=== PATIENT | male | born 1940 | race Native Hawaiian/Other Pacific Islander ===

== ENCOUNTER 2018-04-28 15:37 | Emergency (ER) | payer MEDICARE ==
--- NOTE | 2018-04-28 15:46 | Emergency Department Report ---
Chief Complaint: Upper Respiratory Infection Stated Complaint: COUGHING Time Seen by Provider: 04/28/18 15:45 - HPI History of Present Illness: 24 HOUR HX OF COUGH AMBULATORY HAITIAN SPEAKING wheezing in triage To Ed for treatment. MSE completed MSE screening note: Focused history and physical exam performed. Due to findings the following was ordered: ED Medical Decision Making - Lab Data Result diagrams: 04/28/18 15:57 04/28/18 15:57 ED Disposition for MSE Condition: Stable
[2018-04-28] MEDS ORDERED: PROVENTIL IH ONE (15:47)
[2018-04-28] MEDS ORDERED: DELTASONE PO ONE ×2 (15:48→16:19)
[2018-04-28] MEDS ORDERED: TESSALON PERLES PO ONE (16:19)
[2018-04-28 16:20] LABS: Hematocrit 39.8 % (35.5-45.6); Hemoglobin 13.2 gm/dl (11.8-15.2); Mean Corpuscular HGB Conc 33 % (32-34); Mean Corpuscular Volume 83 fl (84-94); Platelet Count 195 K/mm3 (140-440); Red Blood Count 4.78 M/mm3 (3.65-5.03); Red Cell Distribution Width 13.9 % (13.2-15.2)
--- NOTE | 2018-04-28 16:35 | Emergency Department Report ---
HPI - General Chief Complaint: Upper Respiratory Infection Time Seen by Provider: 04/28/18 15:45 - HPI HPI: 77-year-old male presents to the emergency Department with a 24-hour of a mixed dry and productive cough he also complains of some wheezing. He denies any chest pain, fever, back pain, nausea, vomiting or diaphoresis. He denies any past medical history. He denies any tobacco or illicit drug use or abuse. He has not taken anything for her symptoms prior to presentation. No recent travel or sick contacts at home. ED Past Medical Hx - Past Medical History Previous Medical History?: No - Surgical History Past Surgical History?: Yes Additional Surgical History: testicle surgery - Social History Smoking Status: Never Smoker Substance Use Type: None - Medications Home Medications: Home Medications Medication Instructions Recorded Confirmed Last Taken Type Acetaminophen/Codeine [Tylenol #3] 1 tab PO Q6H PRN #20 tab 06/20/15 Unknown Rx Cyclobenzaprine [Flexeril] 10 mg PO TID PRN #15 tablet 06/20/15 Unknown Rx Ibuprofen [Motrin] 600 mg PO Q8H PRN #40 tablet 06/20/15 Unknown Rx ALBUTEROL Inhaler (OR & NICU) 2 puff IH QID PRN #1 inhalation 04/28/18 Unknown Rx [ProAir HFA Inhaler] Azithromycin [Zithromax Z-JAVIER] 250 mg PO DAILY #6 tab 04/28/18 Unknown Rx Prednisone [predniSONE 5 mg (6-Day 5 mg PO .TAPER #1 tab.ds.pk 04/28/18 Unknown Rx Pack, 21 Tabs)] guaiFENesin/CODEINE [Robitussin AC] 5 ml PO Q6H PRN #100 ml 04/28/18 Unknown Rx ED Review of Systems ROS: Stated complaint: COUGHING Other details as noted in HPI Comment: All other systems reviewed and negative Constitutional: denies: chills, fever Eyes: denies: eye pain, eye discharge ENT: denies: ear pain, throat pain Respiratory: cough, wheezing Cardiovascular: denies: chest pain, edema Gastrointestinal: denies: abdominal pain, vomiting Genitourinary: denies: dysuria, discharge Musculoskeletal: denies: back pain, arthralgia Skin: denies: rash, lesions Neurological: denies: headache, weakness Physical Exam - Physical Exam Vital Signs: Vital Signs 04/28/18 15:47 Temperature 98.9 F Pulse Rate 95 H Respiratory 14 Rate Blood Pressure 161/80 [Right] O2 Sat by Pulse 98 Oximetry Physical Exam: GENERAL: The patient is well-developed well-nourished. HEENT: Normocephalic. Atraumatic. Patient has moist mucous membranes. EYES: Extraocular motions are intact. Pupils are equal and reactive to light bilaterally. NECK: Supple. Trachea is midline. CHEST/LUNGS: Clear to auscultation. Patient has a bronchospastic cough that occurs with coughing fits. There is no respiratory distress noted. HEART/CARDIOVASCULAR: Regular. There is no tachycardia. There is no obvious murmur. ABDOMEN: Abdomen is soft, nontender. Patient has normal bowel sounds. There is no abdominal distention. SKIN: Skin is warm and dry. NEURO: The patient is awake, alert, and oriented. The patient is cooperative. The patient has no focal neurologic deficits. The patient has normal speech. MUSCULOSKELETAL: There is no tenderness or deformity. There is no evidence of acute injury. ED Course Vital Signs 04/28/18 15:47 Temperature 98.9 F Pulse Rate 95 H Respiratory 14 Rate Blood Pressure 161/80 [Right] O2 Sat by Pulse 98 Oximetry ED Medical Decision Making - Lab Data Result diagrams: 04/28/18 15:57 04/28/18 15:57 - Radiology Data Radiology results: image reviewed interpreted by me: Chest x-ray does not show any pneumothorax, pleural effusion, pneumonia or obvious focal consolidation. - Medical Decision Making Patient presents with a 24-hour history of a cough. On examination lungs sound clear patient has a bronchospastic cough that occurs with coughing fits. Chest x-ray did not show any pleural effusions, pneumonia, focal consolidation, pneumothorax, or any other acute process. Labs were unremarkable including a CBC and BMP. He was given some Tessalon Perles for cough, steroids and a breathing treatment. Upon reevaluation he is feeling improved. Vital signs stable throughout his ED course. Patient be discharged home with some antibiotics, albuterol inhaler, steroids and Robitussin-AC for cough. He is instructed to follow-up with his primary care physician and return to the ER with any worsening of his symptoms or any acute distress. - Differential Diagnosis asthma, bronchitis, URI, pneumonia Critical Care Time: No Critical care attestation.: If time is entered above; I have spent that time in minutes in the direct care of this critically ill patient, excluding procedure time. ED Disposition Clinical Impression: Viral URI, Bronchitis, Elevated blood pressure reading Disposition: DC-01 TO HOME OR SELFCARE Is pt being admited?: No Condition: Stable Instructions: Upper Respiratory Infection (ED), Acute Bronchitis (ED) Additional Instructions: Please follow-up with your primary care physician. Return to the emergency Department with any worsening of your symptoms or any acute distress. You have been prescribed a medication that can be sedating. Therefore, this medication cannot be taken prior to driving, working, being responsible for children, and cannot be mixed with alcohol of any quantity. Prescriptions: ALBUTEROL Inhaler (OR & NICU) [ProAir HFA Inhaler] 2 puff IH QID PRN #1 inhalation PRN Reason: Shortness Of Breath Azithromycin [Zithromax Z-JAVIER] 250 mg PO DAILY #6 tab guaiFENesin/CODEINE [Robitussin AC] 5 ml PO Q6H PRN #100 ml PRN Reason: Cough Prednisone [predniSONE 5 mg (6-Day Pack, 21 Tabs)] 5 mg PO .TAPER #1 tab.ds.pk Referrals: PRIMARY CARE, [Primary Care Provider] - 2-3 Days Forms: Work/School Release Form(ED) Time of Disposition: 18:28 Print Language: LUXEMBOURGISH
[2018-04-28 16:39] LABS: BUN/Creatinine Ratio 12; Blood Urea Nitrogen 13 mg/dL (9-20); Calcium 8.3 mg/dL (8.4-10.2); Hemolysis Index 8
[2018-04-28 18:29] VITALS: BP 135/62
--- NOTE | 2018-04-28 18:54 | XRay Report ---
FINAL REPORT PROCEDURE: Chest. TECHNIQUE: PA and lateral views. HISTORY: Cough. COMPARISON: No prior studies are available for comparison. FINDINGS: The heart size is normal. There is calcification in the aortic arch. The lungs are clear and well exp anded. There are no pleural effusions. The soft tissues and regional skeleton are unremarkable. IMPRESSION: No evidence of acute disease.
== END 2018-04-28 18:51 | disposition home or self-care (01) ==
LOC: ED 15:37
DX: J06.9 Acute upper respiratory infection, unspecified (principal); J40 Bronchitis, not specified as acute or chronic; I10 Essential (primary) hypertension
CPT/HCPCS: 36415; 71046; 80048; 85027; 94640; 99284; J7512

== ENCOUNTER 2020-12-23 18:42 | Emergency (ER) | payer MEDICARE ==
[2020-12-23 18:50] VITALS: BP 146/70
--- NOTE | 2020-12-23 19:28 | Emergency Department Report ---
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 Patient states that he was barefoot and hit his foot against the corner of the couch. He states initially there was bleeding but has since improved. He is complaining of pain. He states his last tetanus immunization was 1 year ago. He denies any other injury. he denies any numbness or weakness. no allergies to medications. No past medical history. - Related Data Previous Rx's Medication Instructions Recorded Last Taken Type Acetaminophen/Codeine [Tylenol #3] 1 tab PO Q6H PRN #20 tab 06/20/15 Unknown Rx Cyclobenzaprine [Flexeril] 10 mg PO TID PRN #15 tablet 06/20/15 Unknown Rx Ibuprofen [Motrin] 600 mg PO Q8H PRN #40 tablet 06/20/15 Unknown Rx Albuterol Mdi (or & Nicu Only) 2 puff IH QID PRN #1 inhalation 04/28/18 Unknown Rx [ProAir HFA Inhaler] Azithromycin [Zithromax Z-JAVIER] 250 mg PO DAILY #6 tab 04/28/18 Unknown Rx Prednisone [predniSONE 5 mg (6-Day 5 mg PO .TAPER #1 tab.ds.pk 04/28/18 Unknown Rx Pack, 21 Tabs)] guaiFENesin/CODEINE [Robitussin AC] 5 ml PO Q6H PRN #100 ml 04/28/18 Unknown Rx Acetaminophen [Tylenol] 650 mg PO Q8HR PRN #20 capsule 12/23/20 Unknown Rx Mupirocin [Bactroban 2% OINT] 1 applic TP TID #1 tube 12/23/20 Unknown Rx cephALEXin [Keflex] 500 mg PO QID 7 Days #28 cap 12/23/20 Unknown Rx Allergies Allergy/AdvReac Type Severity Reaction Status Date / Time No Known Allergies Allergy Verified 03/21/15 11:42 ED Review of Systems ROS: Stated complaint: FALL/LT FOOT TOE INJURY Other details as noted in HPI Comment: All other systems reviewed and negative ED Past Medical Hx - Past Medical History Previous Medical History?: No - Surgical History Additional Surgical History: testicle surgery SHOULDER - Social History Smoking Status: Never Smoker Substance Use Type: None - Medications Home Medications: Home Medications Medication Instructions Recorded Confirmed Last Taken Type Acetaminophen/Codeine [Tylenol #3] 1 tab PO Q6H PRN #20 tab 06/20/15 Unknown Rx Cyclobenzaprine [Flexeril] 10 mg PO TID PRN #15 tablet 06/20/15 Unknown Rx Ibuprofen [Motrin] 600 mg PO Q8H PRN #40 tablet 06/20/15 Unknown Rx Albuterol Mdi (or & Nicu Only) 2 puff IH QID PRN #1 inhalation 04/28/18 Unknown Rx [ProAir HFA Inhaler] Azithromycin [Zithromax Z-JAVIER] 250 mg PO DAILY #6 tab 04/28/18 Unknown Rx Prednisone [predniSONE 5 mg (6-Day 5 mg PO .TAPER #1 tab.ds.pk 04/28/18 Unknown Rx Pack, 21 Tabs)] guaiFENesin/CODEINE [Robitussin AC] 5 ml PO Q6H PRN #100 ml 04/28/18 Unknown Rx Acetaminophen [Tylenol] 650 mg PO Q8HR PRN #20 capsule 12/23/20 Unknown Rx Mupirocin [Bactroban 2% OINT] 1 applic TP TID #1 tube 12/23/20 Unknown Rx cephALEXin [Keflex] 500 mg PO QID 7 Days #28 cap 12/23/20 Unknown Rx ED Physical Exam - General Limitations: Language Barrier General appearance: alert, in no apparent distress - Head Head exam: Present: atraumatic, normocephalic - Eye Eye exam: Present: normal appearance - ENT ENT exam: Present: mucous membranes moist - Extremities Exam Extremities exam: Present: other (ttp to the distal left 3rd toe, nail avulsion of the third toe, small amount dried blood, no obvious laceration, FROM of the LLE, neurovascularly intact) - Neurological Exam Neurological exam: Present: alert, oriented X3 - Psychiatric Psychiatric exam: Present: normal affect, normal mood - Skin Skin exam: Present: warm, dry ED Course Vital Signs 12/23/20 12/23/20 18:49 21:17 Temperature 98.0 F Pulse Rate 85 81 Respiratory 18 17 Rate Blood Pressure 146/70 O2 Sat by Pulse 98 99 Oximetry - Procedure Description Procedures done: nail removal. verbal consent obtained by patient using federal aid coordinator. prepped with betadine, sterile drapes applied, 3 cc of 1% lidocaine without epi used for digital block of the left third toe, hemostats used to remove nail without complication, non adherent dressing applied, bleeding c ontrolled, pt tolerated well, no complication ED Lower Extremity MDM - Radiology Data Radiology results: report reviewed Ordering Physician: RACHEL BURCH Date of Service: 12/23/20 Procedure(s): XR foot 3+V LT Accession Number(s): [id number] cc: RACHEL BURCH Fluoro Time In Minutes: LEFT FOOT 3 VIEWS INDICATION: hit left 4th toe against corner of couch. COMPARISON: None. IMPRESSION: On 1 view only there is suggestion of a very subtle nondisplaced fracture near the base of the fourth toe. The remaining bony structures are intact. Plantar spur is noted. No significant joint pathology. Signer Name: Avelino Ramos Jr, MD Signed: 12/23/2020 7:40 PM Workstation Name: [id number] Transcribed By: TTR Dictated By: AVELINO RAMOS JR, MD Electronically Authenticated By: AVELINO RAMOS JR, MD Signed Date/Time: 12/23/201939 DD/ 37 TD/TT: - Medical Decision Making Hungarian interpretation by patient's family member with patient's permission Patient is a 79-year-old male who presents emergency room after a left third toe injury that occurred just prior to arrival. Patient states that he was bare foot and hit his foot against the corner of the couch. He states initially there was bleeding but has since improved. He is complaining of pain. He states his last tetanus immunization was 1 year ago. He denies any other injury. he denies any numbness or weakness. no allergies to medications. No past medical history. Vitals are stable. On exam:ttp to the distal left 3rd toe, nail avulsion of the third toe, small amount dried blood, no obvious laceration, FROM of the LLE, neurovascularly intact. X-ray left foot: On 1 view only there is suggestion of a very subtle nondisplaced fracture near the base of the fourth toe. The remaining bony structures are intact. Plantar spur is noted. No significant joint pathology. Nail removal per procedure note without any complications. Dressing placed by nurse pauline taping performed and patient given post op shoe by nurse and will be referred to orthopedic doctor. Patient given prescription for medication. Advised patient and patient's family member Please use medication as prescribed. Follow-up with orthopedic doctor. Please keep area clean, dry, covered. Wash with antibacterial soap and water pat dry. No hot tub or pool. Return to emergency room for any new or worsening symptoms. Critical care attestation.: If time is entered above; I have spent that time in minutes in the direct care of this critically ill patient, excluding procedure time. ED Disposition Clinical Impression: Nail avulsion Toe injury Qualifiers: Encounter type: initial encounter Laterality: left Qualified Code(s): S99.922A - Unspecified injury of left foot, initial encounter Disposition: HOME / SELF CARE / HOMELESS Is pt being admited?: No Does the pt Need Aspirin: No Condition: Stable Instructions: Nail Avulsion Additional Instructions: Please use medication as prescribed. Follow-up with orthopedic doctor. Please keep area clean, dry, covered. Wash with antibacterial soap and water pat dry. No hot tub or pool. Return to emergency room for any new or worsening symptoms. Prescriptions: Mupirocin [Bactroban 2% OINT] 1 applic TP TID #1 tube cephALEXin [Keflex] 500 mg PO QID 7 Days #28 cap Acetaminophen [Tylenol] 650 mg PO Q8HR PRN #20 capsule PRN Reason: pain Referrals: THERESA ISABEL MD [Staff Physician] - 2-3 Days [facility] [Provider Group] - 2-3 Days Time of Disposition: 19:54 Print Language: JAPANESE
--- NOTE | 2020-12-23 19:44 | XRay Report ---
LEFT FOOT 3 VIEWS INDICATION: hit left 4th toe against corner of couch. COMPARISON: None. IMPRESSION: On 1 view only there is suggestion of a very subtle nondisplaced fracture near the base of the fourth toe. The remaining bony structures are intact. Plantar spur is noted. No significant fabian int pathology. Signer Name: Avelino Ramos Jr, MD Signed: 12/23/2020 7:40 PM Workstation Name: [id number]
[2020-12-23] MEDS ORDERED: ceFAZolin 1 GM VIAL IM ONE (19:50)
[2020-12-23] MEDS ORDERED: LIDOCAINE-MPF (1%) 10 MG/1 ML VIAL 5 ML INFILTRATI ONE (20:29)
== END 2020-12-23 21:17 | disposition home or self-care (01) ==
LOC: ED 18:42
DX: S91.205A Unspecified open wound of left lesser toe(s) with damage to nail, initial encounter (principal); S99.922A Unspecified injury of left foot, initial encounter; W22.8XXA Striking against or struck by other objects, initial encounter; Y93.89 Activity, other specified; Y92.89 Other specified places as the place of occurrence of the external cause; Y99.8 Other external cause status
CPT/HCPCS: 11730; 73630; 96372; 99283; J0690